=== PATIENT | male | born 1985 ===

== ENCOUNTER 2017-05-01 14:32 | Emergency (ER) | payer OTHER ==
[2017-05-01 15:20] VITALS: BP 121/80; PULSE 65; RESP 18; TEMP 98.2; O2SAT 99
[2017-05-01] MEDS ORDERED: Oxycodone/Acetaminophen 5/325 mg Tab PO STA (15:50)
[2017-05-01] MEDS ORDERED: Oxycodone/Acetaminophen 5/325 mg Tab ONE (16:07)
--- NOTE | 2017-05-01 17:01 | ED PDOC ---
Upper Extremity Pain/Injury Time Seen by Provider: 05/01/17 15:35 Chief Complaint (Nursing): Upper Extremity Problem/Injury Chief Complaint (Provider): Finger injury History Per: Patient History/Exam Limitations: no limitations Onset/Duration Of Symptoms: Days (x1) Current Symptoms Are (Timing): Still Present Additional Complaint(s): 32 y/o male presents to the emergency department for evaluation of right finger injury. Patient states earlier today he was attempting to lift a boulder onto a dumpster, when he crushed the right middle finger against the dumpster, sustaining a cut on the finger. Denies any numbness or tingling. Tetanus is not up to date. PMD: None Past Medical History Reviewed: Historical Data, Nursing Documentation, Vital Signs Vital Signs: Last Vital Signs Temp 98.2 F 05/01/17 15:17 Pulse 65 05/01/17 15:17 Resp 18 05/01/17 15:17 BP 121/80 05/01/17 15:17 Pulse Ox 99 05/01/17 15:17 - Medical History PMH: No Chronic Diseases - Family History Family History: States: Unknown Family Hx - Home Medications Home Medications: Ambulatory Orders Medication Instructions Recorded Cephalexin [cephalexin] 500 mg PO Q6 #28 cap 05/01/17 - Allergies Allergies/Adverse Reactions: Allergies Allergy/AdvReac Type Severity Reaction Status Date / Time No Known Allergies Allergy Verified 05/01/17 15:17 Review of Systems ROS Statement: Except As Marked, All Systems Reviewed And Found Negative Musculoskeletal: Positive for: Other (Finger pain) Skin: Positive for: Lesions (to right middle finger) Neurological: Negative for: Weakness, Numbness (and tingling) Physical Exam - Reviewed Nursing Documentation Reviewed: Yes Vital Signs Reviewed: Yes - Physical Exam Appears: Positive for: Non-toxic, No Acute Distress Head Exam: Positive for: ATRAUMATIC, NORMOCEPHALIC Skin: Positive for: Normal Color Eye Exam: Positive for: Normal appearance Extremity: Positive for: Normal ROM (with full ROM actively of all fingers), Other (Superficial avulsion to right 3rd digit at middle phalanx, palmar surface , with debris noted. No active bleeding.) Neurologic/Psych: Positive for: Alert, Oriented. Negative for: Motor/Sensory Deficits - ECG O2 Sat by Pulse Oximetry: 99 (RA) Pulse Ox Interpretation: Normal - Radiology X-Ray: Interpreted by Me, Viewed By Me X-Ray Interpretation: No Acute Disease Medical Decision Making Medical Decision Making: Initial Impression: Superficial Avulsion Time: 15:50 Initial Plan: --Percocet 1 tab PO --Tdap 0.5 ml IM --X-Ray Right Hand X-Ray negative for fracture. Wound was irrigated well with NS. Vaseline gauze applied over wound and sterile dressing applied. Provided rx for cephalexin. Patient counseled regarding diagnosis and the need for follow up with PMD. There is agreement to discharge plan. Return if symptoms persist or worsen. Scribe Attestation: Documented by Sherry Arboleda, acting as a scribe for Omer Murdock PA-C Provider Scribe Attestation: All medical record entries made by the Scribe were at my direction and personally dictated by me. I have reviewed the chart and agree that the record accurately reflects my personal performance of the history, physical exam, medical decision making, and the department course for this patient. I have also personally directed, reviewed, and agree with the discharge instructions and disposition. Disposition - Clinical Impression Clinical Impression: Skin avulsion - Patient ED Disposition Is Patient to be Admitted: No Counseled Patient/Family Regarding: Studies Performed, Diagnosis, Need For Followup, Rx Given - Disposition Referrals: [facility] [Outside] Disposition: Routine/Home Disposition Time: 17:00 Condition: STABLE Prescriptions: Cephalexin [cephalexin] 500 mg PO Q6 #28 cap Instructions: Skin Avulsion (ED) Forms: [employer] ([place]izen [place]), High[employer]ighter (Macedonian) Print Language: NEPALESE - POA Present On Arrival: None
--- NOTE | 2017-05-01 17:19 | RAD ---
PROCEDURE: Right Hand Radiographs. HISTORY: Trauma. Anatomic area of interest: 2nd and 3rd digits COMPARISON: None. FINDINGS: BONES: No acute fracture identified. JOINTS: Normal. No osteoarthritic changes. SOFT TISSUES: Soft tissue swelling particularly about the 3rd digit. OTHER FINDINGS: None. IMPRESSION: Soft tissue swelling without acute articular or osseous abnormality.
== END 2017-05-01 17:25 | disposition home or self-care (01) ==
LOC: H.ER 14:32
DX: S61.202A Unspecified open wound of right middle finger without damage to nail, initial encounter (principal); W22.8XXA Striking against or struck by other objects, initial encounter; Y99.0 Civilian activity done for income or pay

== ENCOUNTER 2018-03-29 10:44 | Emergency (ER) | payer OTHER ==
[2018-03-29 10:57] VITALS: TEMP 98.2
[2018-03-29 10:58] VITALS: BMI 23.9
[2018-03-29] MEDS: Naproxen 500 MG TAB PO ONE (11:41)
[2018-03-29] MEDS ORDERED: Naproxen 500 MG TAB PO ONE (11:41)
--- NOTE | 2018-03-29 12:24 | ED PDOC ---
Lower Extremity Pain/Injury Time Seen by Provider: 03/29/18 11:03 Chief Complaint (Nursing): Lower Extremity Problem/Injury History Per: Patient Additional Complaint(s): Pt. states 2 weeks ago he was playing volleyball and he injured his R knee. States he jumped up from the ground then landed on the R knee. Symptoms improved despite no medical attention and yesterday he played volleyball again but during the game pain initiated and progressively got worse. Reports no trauma to knee yesterday. Denies numbness, tingling, previous knee injuries, fever, chills. Past Medical History Reviewed: Historical Data, Nursing Documentation, Vital Signs Vital Signs: Last Vital Signs Temp 98.2 F 03/29/18 10:57 Pulse 79 03/29/18 10:57 Resp 16 03/29/18 10:57 BP 118/79 03/29/18 10:57 Pulse Ox 99 03/29/18 10:57 - Family History Family History: States: No Known Family Hx - Immunization History Hx Tetanus Toxoid Vaccination: No Hx Influenza Vaccination: Yes Hx Pneumococcal Vaccination: No - Home Medications Home Medications: Ambulatory Orders Medication Instructions Recorded Cephalexin [Keflex] 500 mg PO BID #14 cap 02/03/15 Hydrocodone/Acetaminophen 1 tab PO Q6 PRN #12 tab 02/03/15 [Hydrocodone-Acetaminophen 325 mg-5 mg] Naproxen [Naprosyn] 375 mg PO BID PRN #15 tab 02/03/15 Sulfamethoxazole/Trimethoprim 1 tab PO BID #14 tab 02/03/15 [Bactrim DS 800 mg-160 mg] Cephalexin [cephalexin] 500 mg PO Q6 #28 cap 05/01/17 - Allergies Allergies/Adverse Reactions: Allergies Allergy/AdvReac Type Severity Reaction Status Date / Time No Known Allergies Allergy Verified 05/01/17 15:17 Review of Systems ROS Statement: Except As Marked, All Systems Reviewed And Found Negative Physical Exam - Physical Exam Appears: Positive for: Well, Non-toxic, No Acute Distress Skin: Positive for: Normal Color, Warm. Negative for: Rash Eye Exam: Positive for: Normal appearance Pulses-Dorsalis Pedis (L): 2+ Pulses-Dorsalis Pedis (R): 2+ Extremity: Positive for: Other (R knee with mild tenderness on posteromedial area without swelling or deformity; no joint laxity; negative anterior draw sign; limited ROM secondary to pain; no calf tenderness b/l) - ECG O2 Sat by Pulse Oximetry: 99 - Progress ED Course And Treament: R knee placed in immobilizer by intraoperative neuro tech. Crutches and crutch walking instructions provided by intraoperative neuro tech. Naproxen 500mg PO ordered. Pt. advised to f/u with Dr. Cooper (ortho) for further evaluation but is to return to ED immediately if symptoms worsen. Disposition - Clinical Impression Clinical Impression: Knee injury - Patient ED Disposition Is Patient to be Admitted: No - Disposition Referrals: Ayden Cooper MD [Medical Doctor] - Disposition: Routine/Home Disposition Time: 12:28 Condition: STABLE Additional Instructions: FOLLOW UP WITH ORTHOPEDIST FOR FURTHER EVALUATION RETURN TO ED IMMEDIATELY IF SYMPTOMS WORSEN FRANKLIN ANGULO, thank you for letting us take care of you today. Your provider was Guicho Najera MD and you were treated for RT KNEE PAIN. The emergency medical care you received today was directed at your acute symptoms. If you were prescribed any medication, please fill it and take as directed. It may take felicia ral days for your symptoms to resolve. Return to the Emergency Department if your symptoms worsen, do not improve, or if you have any other problems. Please contact your doctor or call one of the physicians/clinics you have been referred to that are listed on the Patient Visit Information form that is included in your discharge packet. Bring any paperwork you were given at discharge with you along with any medications you are taking to your follow up visit. Our treatment cannot replace ongoing medical care by a primary care provider outside of the emergency department. Thank you for allowing the [facility] team to be part of your care today. If you had an X-Ray or CT scan: A Radiologist will review the ED reading if any change in treatment is needed we will contact you. If you had a blood, urine, or wound culture: It will take several days for the results, if any change in treatment is needed we will contact you. If you had an STI test: It will take 48 hours for the results. Please call after 1 week if you have not heard back. Instructions: Knee Sprain (DC), How to Use Crutches, Going Up and Down Curbs or Stairs With a Walker or Crutches
[2018-03-29 13:00] VITALS: BP 120/65; PULSE 66; RESP 14; O2SAT 100
--- NOTE | 2018-03-29 13:47 | RAD ---
Date of service: 03/29/2018 PROCEDURE: Right Knee Radiographs. HISTORY: trauma COMPARISON: None. FINDINGS: BONES: Normal. No fracture. JOINTS: Normal. No osteoarthritis. JOINT EFFUSION: Small suprapatellar joint effusion OTHER FINDINGS: None. IMPRESSION: No evidence of acute displaced fracture nor dislocation. Small suprapatellar joint effusion felt be present.
== END 2018-03-29 12:55 | disposition home or self-care (01) ==
LOC: H.ER 10:44
DX: S89.91XA Unspecified injury of right lower leg, initial encounter (principal); X50.9XXA Other and unspecified overexertion or strenuous movements or postures, initial encounter; Y92.89 Other specified places as the place of occurrence of the external cause